=== PATIENT | male | born 1960 | race Caucasian/White ===

== ENCOUNTER 2018-05-29 10:43 | Day surgery (SDC) | payer BC ==
[~2018-05-29] VITALS: Ht 193 cm; Wt 149.4 kg
[~2018-05-29 10:43] MED LIST: ACET325 PO; ACIDOPHILUS1 EAC2 PO; CEPH500 PO; CETI5 PO; CIPRO500 MG PO; DIAZ5 PO; ESOM20 PO; Flagyl500 MG PO; HYDACE5 PO; HYDCOR10 PO; HYDCOR20 PO; IBUP400 PO; INDOMETHACIN PO; Indomethacin25 MG PO; PRAM.125 PO; VICODIN 5-3001 EACH PO; VIIBRYD20 MG PO
== END 2018-05-29 12:32 | disposition home or self-care (01) ==
LOC: ORSCSDS 10:43
PROVIDERS: Surgery
PROC: 0DJD8ZZ Inspection of Lower Intestinal Tract, Via Natural or Artificial Opening Endoscopic (ICD-10-PCS; principal; 2018-05-29 12:00)
DX: Z87.19 Personal history of other diseases of the digestive system (principal); K57.30 Diverticulosis of large intestine without perforation or abscess without bleeding; G47.33 Obstructive sleep apnea (adult) (pediatric); E66.01 Morbid (severe) obesity due to excess calories; Z68.41 Body mass index [BMI] 40.0-44.9, adult; Z79.899 Other long term (current) drug therapy
CPT/HCPCS: J7120

== ENCOUNTER 2023-11-22 05:42 | Day surgery (SDC) | payer BC ==
[~2023-11-22] VITALS: Ht 193 cm; Wt 141.8 kg
[2023-11-22] MEDS ORDERED: Lactated Ringer's 1,000 ML IV SCH (06:15)
[2023-11-22 06:49] VITALS: BP 147/87
--- NOTE | 2023-11-22 07:00 | NUR ---
Ambulatory in Day Surgery History, Chart, Medications and Allergies reviewed before start of procedure.Lungs clear T/O to Auscultation. Patient confirms NPO status and agrees with scheduled surgery. Patient states colon prep results clear. Patient States Post-Procedure ride home has been arranged.
[2023-11-22] MEDS ORDERED: Hydrocortisone Sod Succinate 100 MG Vial IV ONE (07:15)
[2023-11-22] MEDS ORDERED: propofoL 50 ML IV ONE (07:16)
[2023-11-22] MEDS ORDERED: propofoL 20 ML IV ONE (07:36)
--- NOTE | 2023-11-22 07:43 | NUR ---
11/22/23 0743 Robert Mejia MONITOR INTACT WITH CONTINUOUS PULSE OXIMETRY, CONTINUOUS END TITAL CO2, AND INTERMITTENT BLOOD PRESSURE. History, Chart, Medications and Allergies reviewed before start of procedure. 3-LEAD EKG REVIEWED WITH PHYSICIAN PRIOR TO START OF PROCEDURE. O2 VIA POM INTACT THROUGHOUT SEDATION/PROCEDURE. Bite Block Placed.
[2023-11-22 08:06] VITALS: BP 108/76
[2023-11-22 08:14] VITALS: BP 121/83
--- NOTE | 2023-11-22 08:36 | NUR ---
Discharge instructions reviewed with patient. Patient verbalizes understanding. Copy given to patient to take home. Discharged via wheelchair to private car for ride home.
== END 2023-11-22 08:35 | disposition home or self-care (01) ==
LOC: ORD 05:42 → ORSCMMR 05:42 → ORD 07:30
PROVIDERS: Surgery
PROC: 0DB68ZX Excision of Stomach, Via Natural or Artificial Opening Endoscopic, Diagnostic (ICD-10-PCS; principal; 2023-11-22 07:30)
PROC: 0DJD8ZZ Inspection of Lower Intestinal Tract, Via Natural or Artificial Opening Endoscopic (ICD-10-PCS; principal; 2023-11-22 07:30)
DX: K92.1 Melena (principal); K29.50 Unspecified chronic gastritis without bleeding; G47.33 Obstructive sleep apnea (adult) (pediatric); G25.81 Restless legs syndrome; I10 Essential (primary) hypertension; Z68.38 Body mass index [BMI] 38.0-38.9, adult; Z79.899 Other long term (current) drug therapy; Z86.010 Personal history of colon polyps
CPT/HCPCS: 88305; 88312; J1720; J2704; J7120